=== PATIENT | female | born 1960 | race Caucasian/White ===

== ENCOUNTER → 2018-04-23 | Outpatient (CLI) | payer OTHER | LOC: BMCIMAGING 10:17 | PROVIDERS: ATTEND Nurse Practitioner Family | DX: Z13.820 Encounter for screening for osteoporosis (principal); M85.9 Disorder of bone density and structure, unspecified ==

== ENCOUNTER 2018-07-12 11:17 | Day surgery (SDC) | payer OTHER ==
[2018-07-12] MEDS ORDERED: LR 1,000 ML IV ONE (11:36)
[2018-07-12] MEDS ORDERED: INDOMETHACIN 50 MG SUPP PR PRN (12:31)
--- NOTE | 2018-07-12 12:31 | PDGENHP ---
History & Physical Chief Complaint: hx polyps History of Present Illness: 58 year old female presents for evaluation of polyps Pertinent Past, Social, Family History: see anesthesiology note for details Relevant Physical Exam: HEENT: anicteric. CV: RRR +s1s2. Lungs: CTAB. Abd: soft, nt, + bs Cardiorespiratory Assessment: ASA 2
--- NOTE | 2018-07-12 12:32 | POSTANESTH ---
Post Anesthetic Evaluation Cardiovascular Status: Normal, Stable Respiratory Status: Normal, Stable, Similar to Pre-op Cond. Level of Consciousness/Mental Status: Can Participate in Eval Pain Control: Adequate, Prn Tx Ordered Nausea/Vomiting Control: Adequate, Prn Tx Ordered Complications Possibly Related to Anesthesia: None Noted
--- NOTE | 2018-07-12 12:32 | PDANEPAE ---
ANE History of Present Illness h/o polyps for colonoscopy ANE Past Medical History - Cardiovascular History Hx Hypertension: No Hx Arrhythmias: No Hx Chest Pain: No Hx Coronary Artery / Peripheral Vascular Disease: No Hx CHF / Valvular Disease: No Hx Palpitations: No - Pulmonary History Hx COPD: No Hx Asthma/Reactive Airway Disease: No Hx Recent Upper Respiratory Infection: No Hx Oxygen in Use at Home: No Hx Sleep Apnea: No Sleep Apnea Screening Result - Last Documented: Negative - Neurologic History Hx Cerebrovascular Accident: No Hx Seizures: No Hx Dementia: No - Endocrine History Hx Diabetes: No Obesity: no - Renal History Hx Renal Disorders: No - Liver History Hx Hepatic Disorders: No - Neurological & Psychiatric Hx Hx Neurological and Psychiatric Disorders: No - Cancer History Hx Cancer: No - Congenital Disorder History Hx Congenital Disorders: No - GI History Hx Gastrointestinal Disorders: No - Other Health History Other Health History: none - Chronic Pain History Chronic Pain: Yes (right hip) - Surgical History Prior Surgeries: 2016 JEFF. 2017 R KNEE SCOPE ANE Review of Systems Review of systems is: negative Review of Systems: - Exercise capacity METS (RN): 5 METS ANE Patient History - Allergies Allergies/Adverse Reactions: No Known Allergies Allergy (Verified 06/28/18 11:09) - Home Medications Home medications: home medication list seen and reviewed Home Medications: Cholecalciferol (Vitamin D3) 06/28/18 [Last Taken 1 Week Ago ~07/05/18] Dhea 06/28/18 [Last Taken 1 Week Ago ~07/05/18] Estrogens,Conjugated 06/28/18 [Last Taken 1 Day Ago ~07/11/18] Herbals/Supplements -Info Only 06/28/18 [Last Taken 1 Week Ago ~07/05/18] Krill Oil 06/28/18 [Last Taken 1 Week Ago ~07/05/18] Magnesium 06/28/18 [Last Taken 1 Week Ago ~07/05/18] Progesterone 06/28/18 [Last Taken 1 Day Ago ~07/11/18] Testosterone 06/28/18 [Last Taken 1 Day Ago ~07/11/18] Vitamin C 06/28/18 [Last Taken 1 Week Ago ~07/05/18] - NPO status NPO Since - Liquids (Date): 07/12/18 NPO Since - Liquids (Time): 03:30 NPO Since - Solids (Date): 07/11/18 NPO Since - Solids (Time): 10:00 - Anes Hx Anes Hx: no prior problems - Smoking Hx Smoking Status: Never smoked - Family Anes Hx Family Hx Anesthesia Complications: NONE ANE Labs/Vital Signs - Vital Signs Blood Pressure: 127/77 Heart Rate: 52 Respiratory Rate: 14 O2 Sat (%): 98 Height: 166.37 cm Weight: 63.503 kg ANE Physical Exam - Airway Neck exam: FROM Mallampati Score: Class 1 Mouth exam: normal dental/mouth exam - Pulmonary Pulmonary: no respiratory distress - Cardiovascular Cardiovascular: regular rate and rhythym - ASA Status ASA Status: II ANE Anesthesia Plan Anesthesia Plan: GA with mask
[2018-07-12] MEDS ORDERED: LR 500 ML IV PRN (12:43)
[2018-07-12] MEDS ORDERED: ONDANSETRON 4 MG/2 ML VIAL IVP PRN (12:43)
[2018-07-12] MEDS ORDERED: fentaNYL 100 MCG/2 ML INJ IVP PRN (12:43)
[2018-07-12] MEDS ORDERED: HYDROmorphONE/DILAUDID 2 MG/ML INJ IVP PRN (12:43)
[2018-07-12] MEDS ORDERED: ACETAMINOPHEN 500 MG TAB PO PRN (12:43)
[2018-07-12] MEDS ORDERED: ALBUTEROL 3 ML DEYVIAL IH PRN (12:43)
[2018-07-12] MEDS ORDERED: NALOXONE HCL 0.4 MG/ML INJ IVP PRN (12:43)
[2018-07-12] MEDS ORDERED: NS 500 ML IV SCH (12:45)
--- NOTE | 2018-07-12 13:10 | GIREPORT ---
[facility] Surgical Services - Endoscopy Department Patient Name: Estefany Washington Procedure Date: 07/12/2018 12:30 PM Patient Type: Outpatient Attending MD/ ER Physician: Wilbert Og MD Procedure: Colonoscopy Indications: High risk colon cancer surveillance: Personal history of colonic polyps Patient Profile: 58 year old female with a history of complex polyps presentsfor surveil brianna coloonscopy. His last colonoscopy was on 04/13/17. Providers: Wilbert Og MD Medicines: Monitored Anesthesia Care Complications: No immediate complications. Estimated blood loss: Minimal. Description of Procedure: After obtaining informed consent, the scope was passed under direct vis ion. Throughout the procedure, the patient's blood pressure, pulse, and oxyg en saturations were monitored continuously. The Colonoscope with irrigatio n channel was introduced through the anus and advanced to the cecum, identified by appendiceal orifice and ileocecal valve. The colonoscopy was performed without difficulty. The patient tolerated the procedure well. The quality of the bowel preparation was good. The ileocecal valve, appendi ceal orifice, and rectum were photographed. Findings: The perianal and digital rectal examinations were normal. Pertinent negatives include no palpable rectal lesions. A 10 mm polyp was found in the ascending colon. The polyp was sessile. The polyp was removed with a cold snare. Resection and retrieval were compl ete. Estimated Blood Loss: Estimated blood loss was minimal. Post Op Diagnosis: - One 10 mm polyp in the ascending colon, removed with a cold snare. Resected and retrieved. Recommendation: - Discharge patient to home (with escort). - The signs and symptoms of potential delayed complications were discus sed with the patient. - Patient has a contact number available for emergencies. - Return to normal activities tomorrow. - Resume previous diet. - Continue present medications. - Await pathology results. - Repeat colonoscopy for surveillance based on pathology results. - Thank you or allowing me to participate in the care of your patient. Attending Participation: I personally performed the entire procedure. Wilbert Og MD Wilbert Og MD 07/12/2018 1:10:27 PM This report has been signed electronicallyWilbert Og MD Number of Addenda: 0 Note Initiated On: 07/12/2018 12:30 PM Total Procedure Duration Time 0 hours 16 minutes 25 seconds [email or web address]
[2018-07-12] MEDS ORDERED: PROPOFOL 200 MG/20 ML VIAL ONE ×2 (13:33)
[2018-07-12 13:52] VITALS: BP 117/68
[2018-07-12] MEDS ORDERED: LIDOCAINE 2% 5 ML SDV ONE (13:53)
== END 2018-07-12 14:00 | disposition home or self-care (01) ==
LOC: FSGY 11:17
PROVIDERS: ATTEND Internal Medicine Gastroenterology
PROC: 0DBK8ZX Excision of Ascending Colon, Via Natural or Artificial Opening Endoscopic, Diagnostic (ICD-10-PCS; principal; 2018-07-12 12:30)
DX: Z09 Encounter for follow-up examination after completed treatment for conditions other than malignant neoplasm (principal); K63.5 Polyp of colon; Z86.010 Personal history of colon polyps
CPT/HCPCS: J2704